=== PATIENT | male | born 1965 | race Caucasian/White ===

== ENCOUNTER 2018-07-10 18:53 | Emergency (ER) | payer SELFPAY ==
[~2018-07-10] VITALS: Ht 165.1 cm; Wt 72.6 kg
[2018-07-10 19:09] VITALS: Ht 165.1 cm; Wt 72.6 kg
[2018-07-10 19:22] LABS: BASOPHIL % 0.9 % (0-2); PLATELET COUNT 252 x10^3mcL (130-400)
[2018-07-10 19:23] LABS: RED CELL DISTRIBUTION WIDTH 14.9 % (11.5-14.5)
[2018-07-10 19:32] LABS: CALCIUM 8.4 mg/dL (8.5-10.1); CARBON DIOXIDE 25.3 mmol/L (21-32); CHLORIDE SERUM 106 mmol/L (98-107); CREATININE SERUM 0.9 mg/dL (0.7-1.3); GFR1 > 60 mL/min; GLUCOSE SERUM 167 mg/dL (74-106); POTASSIUM SERUM 3.4 mmol/L (3.5-5.1); SODIUM SERUM 144 mmol/L (136-145)
[2018-07-10 19:45] LABS: ALBUMIN 3.6 g/dL (3.4-5.0); ALKALINE PHOSPHATASE 101 U/L (46-116); ALT/SGPT 34 U/L (16-63); AST/SGOT 23 U/L (15-37); BILIRUBIN TOTAL 0.34 mg/dL (0.20-1.00); LIPASE 289 IU/L (73-393)
[2018-07-10 20:53] LABS: microscopic required? NO
[2018-07-10 21:01] LABS: UA SPECIFIC GRAVITY <=1.005 (1.005-1.035); urine erythrocyte NEGATIVE (NEGATIVE)
[2018-07-10 21:13] LABS: AMPHETAMINE QUAL UR NONE DETECTED (See below)
[2018-07-10 21:21] VITALS: BP 114/85
== END 2018-07-10 21:21 | disposition left against medical advice (07) ==
LOC: ED 18:53
PROVIDERS: Emergency Medicine
DX: F10.129 Alcohol abuse with intoxication, unspecified (principal); S00.31XA Abrasion of nose, initial encounter; R10.13 Epigastric pain; X58.XXXA Exposure to other specified factors, initial encounter; Y93.89 Activity, other specified; Y92.89 Other specified places as the place of occurrence of the external cause; Y99.8 Other external cause status
CPT/HCPCS: G0480; J2405; J3010; J3411; J3475; J3490